=== PATIENT | female | born 1975 | race Caucasian/White ===

== ENCOUNTER 2019-01-12 21:20 | Emergency (ER) | payer MEDICAID ==
[2019-01-12] MEDS ORDERED: PREDNISONE 20 MG TAB PO ONE (21:28)
--- NOTE | 2019-01-12 21:29 | Emergency Department Record ---
History of Present Illness - General Chief complaint: Poison matt/oak/sumac exposure Stated complaint: POSION MATT Time Seen by Provider: 01/12/19 21:27 Source: Patient Mode of Arrival: Ambulatory Limitations: No limitations - History of Present Illness Initial comments: 43 yo female presents to ED for evaluation of an itchy rash to the right face, right upper extremity, and right lower abdomen after pulling plants away from a fence 2-3 days ago. Patient reports itching to the affected areas, reports mild swelling to the right face prompting visit to the ED> Patient reports similar symptoms previously related to poison matt, reports taking Benadryl this morning for her symptoms. complaint: Rash Onset/Timin -: Days(s) Hx Tetanus Toxoid Vaccination: Yes (09/2014) Year of Tetanus Vaccination: 2014 Location: Face, RUE Severity: Moderate Quality: Other (Itching) Consistency: Constant Improves with: None Worsens with: None Context: None Associated symptoms: Denies other symptoms Treatments Prior to Arrival: Benadryl - Related Data Previous Rx's Medication Instructions Recorded Prednisone [Prednisone 20Mg] 20 mg PO TID #12 tab 01/12/19 Allergies Allergy/AdvReac Type Severity Reaction Status Date / Time No Known Drug Allergies Allergy Verified 01/12/19 21:26 Review of Systems Constitutional: Denies: Chills, Fever, Malaise, Night sweats Eyes: Denies: Eye discharge, Eye pain ENT: Denies: Congestion, Ear pain, Epistaxis Respiratory: Denies: Cough, Dyspnea Cardiovascular: Denies: Chest pain, Dyspnea on exertion Endocrine: Denies: Fatigue, Heat or cold intolerance Gastrointestinal: Denies: Abdominal pain, Nausea, Vomiting Genitourinary: Denies: Incontinence, Retention Musculoskeletal: Denies: Arthralgia, Back pain Skin: Reports: Pruritus, Rash. Denies: Bruising, Change in color Neurological: Denies: Abnormal gait, Confusion, Headache Psychiatric: Denies: Anxiety Hematological/Lymphatic: Denies: Anemia, Blood Clots Past Medical History - SOCIAL HISTORY Smoking Status: Never smoker - RESPIRATORY Hx Respiratory Disorders: No - CARDIOVASCULAR Hx Cardio Disorders: No - NEURO Hx Neuro Disorders: No - GI Hx GI Disorders: No - Hx Genitourinary Disorders: No - ENDOCRINE Hx Endocrine Disorders: No - MUSCULOSKELETAL Hx Musculoskeletal Disorders: No - PSYCH Hx Psych Problems: No - HEMATOLOGY/ONCOLOGY Hx Hematology/Oncology Disorders: No Physical Exam - General General Appearance: Alert, Oriented x3, Cooperative, Mild distress Limitations: No limitations - Head Head exam: Atraumatic, Normocephalic Head exam detail: Other (Mild erythema, edema to the right maxillary region c/w contact dermatitis). negative: Abrasion, Contusion, Clark's sign, General tenderness, Hematoma, Laceration - Eye Eye exam: Normal appearance. negative: Conjunctival injection, Periorbital swelling, Periorbital tenderness, Scleral icterus - ENT Ear exam: negative: Auricular hematoma, Auricular trauma Nasal Exam: negative: Active bleeding, Discharge, Dried blood, Foreign body Mouth exam: negative: Drooling, Laceration, Muffled voice, Tongue elevation Throat exam: negative: Tonsillar erythema, Tonsillomegaly, R peritonsillar mass, L peritonsillar mass - Neck Neck exam: Normal inspection. negative: Meningismus, Tenderness - Respiratory Respiratory exam: Normal lung sounds bilaterally. negative: Respiratory distress, Rhonchi, Stridor, Wheezes - Cardiovascular Cardiovascular Exam: Regular rate, Normal rhythm, Normal heart sounds - GI/Abdominal GI/Abdominal exam: Soft, Other (Rash to the right abdominal wall). negative: Distended, Rebound, Rigid, Tenderness - Rectal Rectal exam: Deferred - exam: Deferred - Extremities Extremities exam: Other (Rash to the right upper extremity). negative: Calf tenderness, Pedal edema, Tenderness - Back Back exam: Denies: CVA tenderness (R), CVA tenderness (L) - Neurological Neurological exam: Alert, Normal gait, Oriented X3 - Psychiatric Psychiatric exam: Normal affect, Normal mood - Skin Skin exam: Rash Type of lesion: Rash Distribution of rash: Abdomen, Face, RUE Description of rash: Erythematous Course - Reevaluation(s) Reevaluation #1: 01/12/19 21:35 Examination appears c/w contact dermatitis Will treat with Prednisone as directed. Patient appears stable for discharge at this time. Disposition Disposition: Discharge Clinical Impression: Contact dermatitis Qualifiers: Contact dermatitis type: irritant Contact dermatitis trigger: non-food plants Qualified Code(s): L24.7 - Irritant contact dermatitis due to plants, except food Condition: (2) Stable Instructions: Contact Dermatitis (ED) Additional Instructions: Return to the emergency department if your symptoms worsen or if you have any concerns. Prednisone as directed. Follow-up with your family doctor in 3-5 days as directed. Prescriptions: Prednisone [Prednisone 20Mg] 20 mg PO TID #12 tab Forms: Patient Portal Access Time of Disposition: 21:28 Quality - Quality Measures Quality Measures: N/A - Blood Pressure Screening Does Patient Have Any of the Following: No Blood Pressure Classification: Normal BP Reading Systolic Measurement: 114 Diastolic Measurement: 75 Screening for High Blood Pressure: < Normal BP, F/U Not Required > [[id number]]
== END 2019-01-12 21:44 | disposition home or self-care (01) ==
LOC: ER 21:20
DX: L24.7 Irritant contact dermatitis due to plants, except food (principal)
CPT/HCPCS: 99283 ×2; J7512